=== PATIENT | male | born 1995 | race Caucasian/White ===

== ENCOUNTER 2016-12-13 18:52 | Emergency (ER) | payer OTHER ==
[~2016-12-13] VITALS: Ht 167.6 cm; Wt 76.1 kg
[~2016-12-13 18:52] MED LIST: IBUP-1459 PO
[2016-12-13 18:57] VITALS: TEMP 36.7; Ht 167.6 cm; Wt 76.1 kg
--- NOTE | 2016-12-13 19:46 | EMERGENCY ROOM VISIT NOTE ---
History Report prepared by Rigoberto: Morenita Smith Under the Supervision of: Dr. Kingsley Guido D.O. First contact with patient: 19:30 Chief Complaint: DIZZY Stated Complaint: DIZZY,NAUSEA Nursing Triage Summary: pt states last 5 days he has been feeling [place] dizzy on top of his head with nausea. History of Present Illness The patient is a 21 year old male who presents to the Emergency Room with complaints of dizziness which started 5 days ago. The patient states that the dizziness gets worse when he moves his head and last for longer than an hour. He notes that it comes and goes. The patient denies feeling like he is going to pass out. He also notes that light hurts his eyes and his vision as it feels very dry. This has been evaluated by ophthalmology who feels as though his tear duct is colic on the left side consequently gave him artificial tears. The patient has no ear pain, sorethroat, sores rashes, or urinary symptoms. He also admits that he had abdominal pain previously but none currently. He does admit to some nausea. He also notes pain on the back superior portion of right testicle that started seven weeks ago. He is following up with urology tomorrow. Source of History: patient Onset: 5 days ago Timing: constant Modifying Factors (Worsening): other (moving head) Associated Symptoms: + nausea, + abdominal pain, No urinary symptoms Note: Pt denies headache, fevers, chest pain, shortness of breath, vomiting, diarrhea , pain with urination, and melena. Pt notes some changes in his vision and sensitivity to light. Review of Systems See HPI for pertinent positives & negatives. A total of 10 systems reviewed and were otherwise negative. Past Medical & Surgical Medical Problems: (1) No active medical problems Family History Diabetes mellitus Hypertension Social History Smoking Status: Never Smoker Alcohol Use: none Marital Status: single Housing Status: lives with roommate Occupation Status: [employer] student Current/Historical Medications Scheduled Doxycycline Hyclate (Vibramycin), 100 MG PO BID Scheduled PRN Meclizine Hcl (Meclizine Hcl), 1 TAB PO TID PRN for dizzy Allergies Coded Allergies: No Known Allergies (Unverified , 03/22/16) Physical Exam Vital Signs Date Time Temp Pulse Resp B/P (MAP) Pulse Ox O2 Delivery O2 Flow Rate FiO2 12/13/16 23:15 71 16 131/69 99 12/13/16 22:35 83 18 131/73 98 Room Air 12/13/16 18:57 36.7 76 18 139/83 96 Room Air Physical Exam GENERAL: alert, well appearing, well nourished, no distress, non-toxic EYE EXAM: normal conjunctiva, PERRL and EOM's intact OROPHARYNX: no exudate, no erythema, lips, buccal mucosa, and tongue normal and mucous membranes are moist. EARS: TMs clear. NECK: supple, no nuchal rigidity, no adenopathy, non-tender LUNGS: Clear to auscultation. Normal chest wall mechanics HEART: no murmurs, S1 normal and S2 normal ABDOMEN: abdomen soft, non-tender, normo-active bowel sounds, no masses, no rebound or guarding. BACK: Back is symmetrical on inspection and there is no deformity, no midline tenderness, no CVA tenderness. SKIN: no rashes and no bruising : normal external genitalia, no penal discharge, cremasteric reflex intact, posterior superior portion of right testicle is tender. UPPER EXTREMITIES: upper extremities are grossly normal. LOWER EXTREMITIES: No pitting edema. NEURO EXAM: Normal sensorium, cranial nerves II-XII intact, normal speech, no weakness of arms, no weakness of legs. No drift. Finger to nose intact. Gross sensation intact. Medical Decision & Procedures ER Provider Diagnostic Interpretation: Radiology results as stated below per my review and the radiologist's interpretation: CT SCAN OF THE BRAIN WITHOUT IV CONTRAST FINDINGS: Brain parenchyma: The brain parenchyma is normal in appearance. There is no hemorrhage, mass effect, or evidence of acute territorial ischemia by CT criteria. Ngo-white matter is preserved. No extra-axial fluid collection is seen. Ventricles, sulci, cisterns: Normal in configuration. Intracranial vasculature: The visualized intracranial vasculature at the skull base is normal in appearance. Calvarium: Unremarkable. Sinuses and mastoids: The visualized paranasal sinuses are clear. The mastoid air cells are well pneumatized. Orbits: The bony orbits are grossly intact. IMPRESSION: No acute intracranial abnormality. Electronically signed by: Haroldo Jones M.D. Laboratory Results 12/13/16 20:00 Red Blood Count 5.50, Mean Corpuscular Volume 83.6, Mean Corpuscular Hemoglobin 28.7, Mean Corpuscular Hemoglobin Concent 34.3, Mean Platelet Volume 10.2, Neutrophils (%) (Auto) 53.7, Lymphocytes (%) (Auto) 36.3, Monocytes (%) (Auto) 7.0, Eosinophils (%) (Auto) 2.0, Basophils (%) (Auto) 0.7, Neutrophils # (Auto) 5.41, Lymphocytes # (Auto) 3.66, Monocytes # (Auto) 0.70, Eosinophils # (Auto) 0.20, Basophils # (Auto) 0.07 12/13/16 20:00 Test 12/13/16 20:00 White Blood Count 10.07 K/uL (4.8-10.8) Red Blood Count 5.50 M/uL (4.7-6.1) Hemoglobin 15.8 g/dL (14.0-18.0) Hematocrit 46.0 % (42-52) Mean Corpuscular Volume 83.6 fL (80-100) Mean Corpuscular Hemoglobin 28.7 pg (25-34) Mean Corpuscular Hemoglobin Concent 34.3 g/dl (32-36) Platelet Count 208 K/uL (130-400) Mean Platelet Volume 10.2 fL (7.4-10.4) Neutrophils (%) (Auto) 53.7 % Lymphocytes (%) (Auto) 36.3 % Monocytes (%) (Auto) 7.0 % Eosinophils (%) (Auto) 2.0 % Basophils (%) (Auto) 0.7 % Neutrophils # (Auto) 5.41 K/uL (1.4-6.5) Lymphocytes # (Auto) 3.66 K/uL (1.2-3.4) Monocytes # (Auto) 0.70 K/uL (0.11-0.59) Eosinophils # (Auto) 0.20 K/uL (0-0.5) Basophils # (Auto) 0.07 K/uL (0-0.2) RDW Standard Deviation 36.2 fL (36.4-46.3) RDW Coefficient of Variation 11.9 % (11.5-14.5) Immature Granulocyte % (Auto) 0.3 % Immature Granulocyte # (Auto) 0.03 K/uL (0.00-0.02) D-Dimer < 190 ug/L FEU (0-500) Urine Color YELLOW Urine Appearance CLEAR (CLEAR) Urine pH 7.0 (4.5-7.5) Urine Specific [place] 1.016 (1.000-1.030) Urine Protein NEG (NEG) Urine Glucose (UA) NEG (NEG) Urine Ketones NEG (NEG) Urine Occult Blood NEG (NEG) Urine Nitrite NEG (NEG) Urine Bilirubin NEG (NEG) Urine Urobilinogen NEG (NEG) Urine Leukocyte Esterase NEG (NEG) Urine WBC (Auto) 0 /hpf (0-5) Urine RBC (Auto) 0-4 /hpf (0-4) Urine Hyaline Casts (Auto) 0 /lpf (0-5) Urine Epithelial Cells (Auto) 0-5 /lpf (0-5) Urine Bacteria (Auto) NEG (NEG) Anion Gap 8.0 mmol/L (3-11) Est Creatinine Clear Calc Drug Dose 105.4 ml/min Estimated GFR () 124.1 Estimated GFR (Non- 107.1 BUN/Creatinine Ratio 12.3 (10-20) Calcium Level 9.3 mg/dl (8.5-10.1) Total Bilirubin 0.8 mg/dl (0.2-1) Direct Bilirubin 0.2 mg/dl (0-0.2) Aspartate Amino Transf (AST/SGOT) 21 U/L (15-37) Alanine Aminotransferase (ALT/SGPT) 25 U/L (12-78) Alkaline Phosphatase 59 U/L (45-117) Total Protein 7.7 gm/dl (6.4-8.2) Albumin 4.3 gm/dl (3.4-5.0) Lipase 128 U/L (73-393) Laboratory results per my review. Medications Administered Medications (Trade) Dose Ordered Sig/Chris Route Start Time Stop Time Status Last Admin Dose Admin Sodium Chloride 1,000 ml @ 999 mls/hr Q1H1M STAT IV 12/13/16 19:51 12/13/16 20:51 DC 12/13/16 20:05 999 MLS/HR Ondansetron HCl (Zofran Inj) 4 mg NOW STAT IV 12/13/16 19:51 12/13/16 19:52 DC 12/13/16 20:04 4 MG Meclizine HCl (Antivert Tab) 25 mg NOW STAT PO 12/13/16 19:51 12/13/16 19:52 DC 12/13/16 20:05 25 MG Ceftriaxone Sodium (Rocephin Inj) 1 gm NOW STAT IV 12/13/16 21:45 12/13/16 21:48 DC 12/13/16 22:31 1 GM Doxycycline Hyclate (Vibramycin Cap) 100 mg ONE ONCE PO 12/13/16 21:45 12/13/16 21:48 DC 12/13/16 22:32 100 MG ED Course ED COURSE: Vital signs were reviewed and showed hypertensive The patients medical record was reviewed The above diagnostic studies were performed and reviewed. ED treatments and interventions as stated above. 1936: The patient was evaluated in room A10 . A complete history and physical examination was performed. 1950: Antivert Tab 25 mg PO, Zofran Inj 4 mg IV, Sodium Chloride 1000 ml @ 999 mls/hr IV. 2144: Vibramycin Cap 100 mg PO, Rocephin Inj 1 gm IV 2239: Upon reevaluation, the patient is resting.I discussed my findings with the patient and he understands and agrees with the treatment plan. Based on the patients age, coexisting illnesses, exam and lab findings the decision to treat as an outpatient was made. The patient remained stable while under my care. The patient appeared well at the time of discharge. Medical Decision Differential diagnosis: Etiologies such as benign positional vertigo, dehydration, hypovolemia, anemia, tumor, infection, hypoglycemia, electrolyte abnormalities, cardiac sources, intracerebral event, toxicologic, neurologic, as well as others were entertained. Patient is a 21-year-old male who presents the ER for intermittent dizziness which is coming going for the past 5 days. He has had multiple trips via plane. Potassium is 2 previous history of abdominal pain which has resolved and right Sams pain which has been present for the past 7 weeks. CBC along with BMP, LFTs, bilirubin and lipase was unremarkable. UA was negative. With his dizziness I did pursue a possible CVT but d-dimer was negative and felt this was very unlikely with a completely intact neuro exam. His symptoms do appear to be more positional and consequently not central. CT head was negative. Abdominal exam is completely benign. Right testicle was tender a posterior superior aspect where the epididymis is present. Although UA was negative follow was reasonable as he is sexually active to treat him for possible STD. He is given Rocephin and discharged on doxycycline. He will follow with urology tomorrow. Lastly he is given Antivert for his dizziness. Discussed with Pt concerning signs and symptoms to watch out for. Pt was instructed to follow up with their PCP and discussed with the patient their option to return to the ED at anytime for persistent or worsening symptoms. The appropriate anticipatory guidance and out-patient management, including indications for return to the emergency department, were explained at length to the patient and understood. Medication Reconcilliation Current Medication List: was personally reviewed by me Blood Pressure Screening Patient's blood pressure: Elevated blood pressure Blood pressure disposition: Elevated BP felt to be situational Impression Primary Impression: Epididymitis Additional Impressions: Dizziness Hypokalemia Scribe Attestation The scribe's documentation has been prepared under my direction and personally reviewed by me in its entirety. I confirm that the note above accurately reflects all work, treatment, procedures, and medical decision making performed by me. Departure Information Dispostion Home / Self-Care Prescriptions Meclizine Hcl (MECLIZINE HCL) 25 Mg Tab 1 TAB PO TID Y for dizzy for 10 Days, #30 TAB Prov: Kingsley Guido, DO 12/13/16 Doxycycline Hyclate (VIBRAMYCIN) 100 Mg Cap 100 MG PO BID for 7 Days, #14 CAP Prov: Kingsley Guido, DO 12/13/16 Referrals No Doctor, Assigned (PCP) Forms HOME CARE DOCUMENTATION FORM, IMPORTANT VISIT INFORMATION Patient Instructions ED Dizziness Aisha LENZ [facility] Additional Instructions Please follow up with your primary care doctor or if you are a student, [facility] with in the next 24 hours. Any worsening of your symptoms, please return to the ED immediately. This includes any fevers greater than 100.4, worsening pain, chest pain, shortness breath, persistent nausea, vomiting, unable to eat or drink, or any other concerning signs or symptoms from your standpoint. Please not drive until your symptoms completely resolved. Please take Antivert as needed for dizziness. Problem Qualifiers
[2016-12-13] MEDS ORDERED: SODIUM CHLORIDE 0.9% 1000ML 1,000 ML IV STA (19:51)
[2016-12-13] MEDS ORDERED: ONDANSETRON INJ 2 MG/ML 2 ML VIAL IV STA (19:51)
[2016-12-13] MEDS ORDERED: MECLIZINE HCL 25 MG TAB PO STA (19:51)
[2016-12-13 20:08] LABS: BASO % 0.7 %; BASO ABS # 0.07 K/uL (0-0.2); COMPLETE YES; IG% 0.3 %; LYMPH % 36.3 %; LYMPH ABS # 3.66 K/uL (1.2-3.4); MEAN CELL VOLUME 83.6 fL (80-100); MEAN CORPUSCULAR HEMOGLOBIN 28.7 pg (25-34); MEAN CORPUSCULAR HGB CONC 34.3 g/dl (32-36); MEAN PLATELET VOLUME 10.2 fL (7.4-10.4); NEUT % 53.7 %; PLATELET COUNT 208 K/uL (130-400); WHITE BLOOD COUNT 10.07 K/uL (4.8-10.8)
[2016-12-13 20:24] LABS: BUN/CREATININE RATIO 12.3 (10-20); CALCIUM 9.3 mg/dl (8.5-10.1); POTASSIUM 3.4 mmol/L (3.5-5.1)
--- NOTE | 2016-12-13 21:04 | DIAGNOSTIC IMAGING REPORT ---
CT SCAN OF THE BRAIN WITHOUT IV CONTRAST CLINICAL HISTORY: Headache and dizziness. COMPARISON STUDY: No priors. TECHNIQUE: Unenhanced axial CT scan of the brain is performed from the vertex to the skull base. Automated dose control exposure was utilized. A dose lowering technique was utilized adhering to the principles of ALARA. CT DOSE: 537.48 mGy.cm FINDINGS: Brain parenchyma: The brain parenchyma is normal in appearance. There is no hemorrhage, mass effect, or evidence of acute territorial ischemia by CT criteria. Ngo-white matter is preserved. No extra-axial fluid collection is seen. Ventricles, sulci, cisterns: Normal in configuration. Intracranial vasculature: The visualized intracranial vasculature at the skull base is normal in appearance. Calvarium: Unremarkable. Sinuses and mastoids: The visualized paranasal sinuses are clear. The mastoid air cells are well pneumatized. Orbits: The bony orbits are grossly intact. IMPRESSION: No acute intracranial abnormality. Electronically signed by: Haroldo Jones M.D. 12/13/2016 9:03 PM Dictated Date/Time: 12/13/2016 9:01 PM
[2016-12-13] MEDS ORDERED: CEFTRIAXONE SOD INJ 1 GM ADDVIAL IV STA (21:45)
[2016-12-13] MEDS ORDERED: DOXYCYCLINE HYCLATE 100 MG CAP PO ONE (21:45)
[2016-12-13 22:08] LABS: URINE APPEARANCE CLEAR (CLEAR); URINE BILIRUBIN NEG (NEG); URINE COLOR YELLOW; URINE EPITHELIAL CELL AUTO 0-5 /lpf (0-5); URINE NITRITE NEG (NEG); URINE SPECIFIC GRAVITY 1.016 (1.000-1.030); UROBILINOGEN NEG (NEG)
[2016-12-13 22:12] LABS: MANUAL MICROSCOPIC REQUIRED? NO; REVIEW REQ? NO
[2016-12-13] MEDS ORDERED: DOXY100C PO (23:08)
[2016-12-13] MEDS ORDERED: MECL1TAB42 PO (23:08)
[2016-12-13 23:15] VITALS: BP 131/69; PULSE 71; O2SAT 99
== END 2016-12-13 23:15 | disposition home or self-care (01) ==
LOC: C.EDB 18:53 → C.EDA 23:15
DX: N45.1 Epididymitis (principal); R42 Dizziness and giddiness; E87.6 Hypokalemia; Z82.49 Family history of ischemic heart disease and other diseases of the circulatory system; Z83.3 Family history of diabetes mellitus

== ENCOUNTER → 2017-01-20 | Outpatient (CLI) | payer OTHER | END | disposition home or self-care (01) | LOC: C.LABSPEC 17:21 | PROVIDERS: ATTEND Nurse Practitioner Adult Health | DX: N45.2 Orchitis (principal) ==

== ENCOUNTER → 2017-01-21 | Outpatient (CLI) | payer OTHER ==
--- NOTE | 2017-01-21 08:25 | DIAGNOSTIC IMAGING REPORT ---
(TESTICULAR) SCROTUM-CONT CLINICAL HISTORY: 21 years-old Male with N45.2 [id number]. Acute orchitis. Initial exam. COMPARISON STUDY: None available TECHNIQUE: Real-time, grayscale, and color Doppler sonography of the testes and scrotum is performed. Images are reviewed in the transverse and longitudinal planes. FINDINGS: RIGHT HEMISCROTUM: The right testis measures 4.7 x 3.1 x 2.3 cm and the parenchyma appears within normal limits. No intratesticular mass is seen. Normal-appearing arterial inflow is present within the right testicle. Small epididymal head cyst is noted, 0.3 cm. Small hydrocele is noted. 0.6 cm scrotal lith. LEFT HEMISCROTUM: The left testis measures 4.4 x 2.7 x 2.2 cm and the parenchyma appears within normal limits. No intratesticular mass is seen. Normal-appearing arterial inflow is present within the left testicle. Epididymal head cyst is noted, 0.3 cm. No varicocele or hydrocele is identified. IMPRESSION: 1. Unremarkable sonographic appearance of the bilateral testicles without evidence of orchitis or focal mass. 2. Small right-sided hydrocele. 3. Subcentimeter bilateral epididymal head cysts. 4. 0.6 cm right scrotal lith. The above report was generated using voice recognition software. It may contain grammatical, syntax or spelling errors. Electronically signed by: Adonay Funk M.D. 01/21/2017 8:24 AM Dictated Date/Time: 01/21/2017 8:20 AM
== END | disposition home or self-care (01) ==
LOC: C.ULTR 07:56
PROVIDERS: ATTEND Nurse Practitioner Adult Health
DX: N45.2 Orchitis (principal)

== ENCOUNTER → 2017-08-10 | Outpatient (CLI) | payer OTHER ==
--- NOTE | 2017-08-10 15:16 | DIAGNOSTIC IMAGING REPORT ---
L WRIST MIN 3 VIEWS ROUTINE CLINICAL HISTORY: 22 years-old Male presenting with LEFT WRIST PAIN. TECHNIQUE: Frontal, oblique, and lateral views of the left wrist were obtained. COMPARISON: None. FINDINGS: No acute fracture or malalignment. No advanced degenerative change. No radiographic soft tissue abnormality. IMPRESSION: No acute osseous injury. Electronically signed by: Humberto Lemos M.D. 08/10/2017 3:15 PM Dictated Date/Time: 08/10/2017 3:13 PM
== END | disposition home or self-care (01) ==
LOC: C.RDSM 15:07
PROVIDERS: ATTEND Family Medicine
DX: M25.532 Pain in left wrist (principal)